=== PATIENT | female | born 1960 | race Caucasian/White ===

== ENCOUNTER 2021-06-02 10:09 | Day surgery (SDC) | payer OTHER ==
[2021-06-02] VITALS (12 sets, daily range): BP systolic 115–134; BP diastolic 53–87; PULSE 68–88; TEMP 98.4
[~2021-06-02] VITALS: Ht 165.1 cm; Wt 66.0 kg
[2021-06-02] MEDS ORDERED: LIPITOR 40MG TA40 MG PO (10:53)
[2021-06-02 10:55] LABS: HEMATOCRIT 38.9 % (37.0-47.0); HEMOGLOBIN 13.6 g/dl (12.5-16.0); MEAN CELL VOLUME 87 fl (80.0-100.0); MEAN CORPUSCULAR HEMOGLOBIN 31 pg (27.0-31.0); MEAN CORPUSCULAR HGB CONC 35 g/dl (33.0-37.0); PLATELET COUNT 210 K/mm3 (130-400); RED BLOOD COUNT 4.45 M/mm3 (4.10-5.30)
[2021-06-02] MEDS ORDERED: COREG 6.256.25 MG/TA PO (10:58)
[2021-06-02] MEDS ORDERED: NOVOLOG 100U100 U/M1 SQ (10:58)
[2021-06-02] MEDS ORDERED: ASPIRIN E.C. 8181 MG PO (10:59)
[2021-06-02] MEDS ORDERED: GLUCOPHAGE500 MG/TAB PO (10:59)
[2021-06-02] MEDS ORDERED: MICARDIS HCT 121 TA1 PO (10:59)
[2021-06-02] MEDS ORDERED: EFFEXOR 75M75 MG/TAB PO (11:00)
[2021-06-02 11:05] LABS: INR 1.1 (0.8-3.0); PROTHROMBIN TIME 11.9 SECONDS (9.7-12.8)
[2021-06-02 11:07] LABS: PARTIAL THROMBOPLASTIN TIME 32.3 SECONDS (26.0-37.0)
--- NOTE | 2021-06-02 11:13 | NUR ---
SEE MERGE FOR ALL MEDICATION ADMINISTRATION TIMES/DOSAGES AND INTRA/POST SEDATION ASSESSMENT. PT ASSESSMENT COMPLETED IN PRE POST.
[2021-06-02 11:15] LABS: CALCIUM 9.6 mg/dL (8.4-10.2); CREATININE, serum 0.77 mg/dL (0.57-1.11); POTASSIUM 3.7 mmol/L (3.5-4.5)
--- NOTE | 2021-06-02 16:45 | NUR ---
All air released from band in 2-3 ml incriments.No bleeding observed at site.Wrapped in gauze and coban.
--- NOTE | 2021-06-02 17:02 | NUR ---
Discharge instructions given to pt.Pt verbalizes understanding.INT removed,catheter tip intact.Dressing observed clean,dry,intact,soft to touch.
== END 2021-06-02 17:36 ==
LOC: COL.CAR 10:09
PROVIDERS: Internal Medicine Cardiovascular Disease
DX: I25.10 Atherosclerotic heart disease of native coronary artery without angina pectoris (principal); I10 Essential (primary) hypertension; R07.89 Other chest pain; R94.39 Abnormal result of other cardiovascular function study; E78.5 Hyperlipidemia, unspecified; E11.9 Type 2 diabetes mellitus without complications; I47.2 Ventricular tachycardia; R00.2 Palpitations; Z79.82 Long term (current) use of aspirin; Z79.899 Other long term (current) drug therapy; Z79.4 Long term (current) use of insulin; Z79.84 Long term (current) use of oral hypoglycemic drugs; Z86.73 Personal history of transient ischemic attack (TIA), and cerebral infarction without residual deficits
CPT/HCPCS: J1644; J2250; J3010; J7030; Q9967

== ENCOUNTER 2024-03-08 05:49 | Day surgery (SDC) | payer OTHER ==
[~2024-03-08] VITALS: Ht 165.1 cm; Wt 64.5 kg
[~2024-03-08 05:49] MED LIST: ASPIRIN E.C. 8181 MG PO; COREG 6.256.25 MG/TA PO; EFFEXOR 75M75 MG/TAB PO; GLUCOPHAGE500 MG/TAB PO; LIPITOR 40MG TA40 MG PO; MICARDIS HCT 121 TA1 PO; NOVOLOG 100U100 U/M1 SQ; Ondansetron 4 MG/2 ML VIAL IV PRN; RETIN-A0.0251 TP; [UNRECOGNIZED DRUG - OTHER] TP
[2024-03-08] MEDS ORDERED: LR 1,000 ML IV SCH (06:00)
[2024-03-08 06:27] VITALS: BP 142/72; PULSE 87; TEMP 97.4
--- NOTE | 2024-03-08 06:32 | NUR ---
PATIENT AMBULATORY TO [facility]. REPORTS GOOD RESULTS FROM THE PREP. STATES REMOVED DEXCOM AND LEFT AT HOME. ACCUCHECK 100.
[2024-03-08] MEDS ORDERED: TRULICITY1.5 MG/0.5 SQ (06:34)
[2024-03-08] MEDS ORDERED: ZOFRAN ODT4 MG PO (06:35)
[2024-03-08] MEDS ORDERED: PEPCID 20MG TAB20 MG PO (06:35)
[2024-03-08] MEDS ORDERED: PROTONIX20 MG PO (06:36)
[2024-03-08 08:15] VITALS: BP 110/75; PULSE 76; TEMP 97.4
[2024-03-08 08:30] VITALS: BP 123/61; PULSE 76
--- NOTE | 2024-03-08 09:15 | NUR ---
Patient returns from procedure to [facility] 2 via cart at 0815 Ambulates to recliner chair. VSS. Report received. Pt denies complaints. Muffin and coffee provided 0820- Dr. Grajeda into speak with patient 0835- Discharge instructions given, questions answered 0840- IV removed, pt dressed without issue. Awaiting husbands arrival to facility. Pt denies complaints.
--- NOTE | 2024-03-08 09:27 | NUR ---
Pt down to husbands car via w/c at 0920. Denied any complains upon departure.
== END 2024-03-08 09:20 | disposition home or self-care (01) ==
LOC: SDCO 05:49
DX: K59.09 Other constipation (principal); K21.00 Gastro-esophageal reflux disease with esophagitis, without bleeding; Z79.899 Other long term (current) drug therapy; Z79.82 Long term (current) use of aspirin; Z83.79 Family history of other diseases of the digestive system
CPT/HCPCS: J2704; J7120